=== PATIENT | female | born 1980 | race Caucasian/White ===

== ENCOUNTER 2021-05-20 08:28 | Day surgery (SDC) | payer BC, OTHER ==
[2021-05-20] MEDS ORDERED: Ringers Lactate 1,000 ML IV ONE (09:09)
[2021-05-20] MEDS ORDERED: CEFAZOLIN/SWI 1gm 1 GM/10 ML SYR ONE (09:10)
[2021-05-20 09:17] VITALS: O2SAT 100
[2021-05-20] MEDS ORDERED: BUPIVACAINE 0.25% PF 30 ML VIAL ONE (10:58)
[2021-05-20] MEDS ORDERED: MIDAZOLAM HCL 2 MG/2 ML INJ ONE ×2 (11:37→11:53)
[2021-05-20] MEDS ORDERED: CELECOXIB 100 MG CAPSULE ONE (11:44)
[2021-05-20] MEDS ORDERED: ACETAMINOPHEN 500 MG TAB ONE (11:45)
[2021-05-20] MEDS ORDERED: propofoL 200 MG/20 ML VIAL IV ONE (11:53)
[2021-05-20] MEDS ORDERED: FENTANYL CITR 100 MCG/2 ML ONE (11:54)
[2021-05-20] MEDS ORDERED: LIDOCAINE 1% MPF 5 ML VIAL ONE (11:54)
[2021-05-20] MEDS ORDERED: dexAMETHasone 10 MG/ML VIAL ONE (12:07)
[2021-05-20] MEDS ORDERED: KETOROLAC 30 MG/ML INJ ONE (12:07)
[2021-05-20] MEDS ORDERED: ONDANSETRON 4 MG/2 ML VIAL ONE (12:10)
--- NOTE | 2021-05-20 12:12 | P.OP ---
Preoperative diagnosis: LEFT lower back mass Postoperative diagnosis: LEFT lower back mass Primary procedure: Excisional Biopsy of LEFT lower back mass Anesthesia: GETA + Local Estimated blood loss: <2cc Specimen: Lipomatous mass Findings: ~3cm lipomatous mass with fibrous component Complications: None Transferred to: Recovery Room Condition: Good
[2021-05-20] MEDS ORDERED: HYDROCODONE/APAP 7.5/325 MG TAB ONE (13:12)
[2021-05-20 13:19] VITALS: BP 116/58; TEMP 96.2
--- NOTE | 2021-05-20 18:29 | OP ---
Date of Procedure: 05/20/2021 Surgeon: Ruben Rodriguez MD, Preoperative Diagnosis: Left lower back mass. Postoperative Diagnosis: Left lower back mass. Procedure Performed: Excisional biopsy of left lower back mass. Anesthesia: General endotracheal plus local with 0.25% Marcaine. Estimated Blood Loss: Less than 2 mL. Specimen: Lipomatous mass. Findings: Approximately 3 cm lipomatous mass with fibrous component. Complications: None. Disposition: Transferred to recovery room in good condition. Procedure In Detail: After informed consent was obtained, the patient was brought to the operating r oom, prepped and draped in the usual sterile fashion after adequate anesthesia achieved. I anestheti zed the area in the left lower flank just above the iliac arch down to subcutaneous tissues. A linea r incision was made approximately 3 cm down to the subcutaneous tissues. Electrocautery was used to dissect circumferentially down to a palpable mass, which found to be deep to the fascia overlying the muscle. A lipomatous mass was encircled at this point using a combination of blunt and sharp dissec tion as well as electrocautery. Ultimately, the mass was removed and sent off for pathologic examina tion and found to be approximately 3 cm with some fibrous components, but no by gross appe arance as predominant lipomas. The area was copiously irrigated multiple times until completely jayro r. Electrocautery was used to achieve hemostasis quite easily. The wound was then irrigated one las t time, suctioned out until completely dry, and the skin was then closed using a 4-0 Monocryl in a ru nning fashion. Dermabond placed over top. The patient tolerated the procedure well without evidence of complication and transferred to PACU in good condition. All counts were correct at the end of e case. TK/MODL Voice ID: [id number] Report ID: [id number]
== END 2021-05-20 13:23 | disposition home or self-care (01) ==
LOC: OR 08:28
PROVIDERS: ATTEND Surgery
PROC: 0JB70ZZ Excision of Back Subcutaneous Tissue and Fascia, Open Approach (ICD-10-PCS; principal; 2021-05-20 09:15)
DX: D17.1 Benign lipomatous neoplasm of skin and subcutaneous tissue of trunk (principal); Z20.822 Contact with and (suspected) exposure to COVID-19
CPT/HCPCS: 81025; 88304; 11403; U0003; J2704; J2250 ×2; J3010; J1100; J0690; J7120; J2405; 88305